=== PATIENT | male | born 1955 | race Caucasian/White ===

== ENCOUNTER 2016-10-01 07:59 | Inpatient (IN) | payer BC ==
[~2016-10-01] VITALS: Ht 182.9 cm; Wt 104.7 kg
[~2016-10-01 07:59] MED LIST: TAMS5CAP PO; XARE10TA PO
[2016-10-07] MEDS ORDERED: INSULIN HUMAN REGULAR 1,000 UNITS/10 ML VIAL SQ PRN (07:30)
[2016-10-07] MEDS ORDERED: LACTATED RINGER'S 1000 ML IV SCH (07:30)
[2016-10-07] MEDS ORDERED: SODIUM CHLORID 0.9% 500 ML IV SCH (07:30)
[2016-10-07] MEDS ORDERED: METOPROLOL TARTRATE 25 MG TAB PO PRN (07:30)
[2016-10-07 07:35] VITALS: BP 141/93; PULSE 57; RESP 16; TEMP 97.1; O2SAT 98
[2016-10-07] MEDS ORDERED: VANCOMYCIN HCL 1000 MG VIAL ONE (07:49)
[2016-10-07] MEDS ORDERED: SODIUM CHLOR 0.9% 250 ML INJ 250 ML ONE ×2 (07:49→09:34)
[2016-10-07] MEDS ORDERED: HEPARIN SODIUM - SQ 10,000 UNITS/ML VIAL ONE ×2 (08:30→09:34)
[2016-10-07] MEDS ORDERED: ceFAZolin 2 GM PREMIX 50 ML ONE ×2 (08:30→09:33)
[2016-10-07] MEDS ORDERED: BUPIVACAINE LIPOSO PF 1.3% INJ 20 ML in SODIUM CHLORIDE 0.9% INJ 40 ML PERIART SCH (09:15)
[2016-10-07] MEDS ORDERED: TRANEXAMIC ACID INJ 1,050 MG in SODIUM CHLORIDE 0.9% INJ 100 ML IV SCH (09:15)
[2016-10-07] MEDS ORDERED: GENTAMICIN SULFATE 80 MG/2 ML VIAL ONE ×2 (09:34→09:52)
[2016-10-07] MEDS ORDERED: FAMOTIDINE 20 MG/2 ML VIAL ONE (09:47)
[2016-10-07] MEDS ORDERED: MIDAZOLAM HCL 2 MG/2 ML VIAL ONE ×2 (09:47→13:29)
[2016-10-07] MEDS ORDERED: HYDROmorphone HCL PF 2 MG/ML VIAL ONE (09:53)
[2016-10-07] MEDS: GELFOAM SIZE 100 ONE ×2 (09:53→11:06)
[2016-10-07] MEDS ORDERED: ACETAMINOPHEN 1000 MG/100 ML VIAL IV ONE (09:53)
[2016-10-07] MEDS: THROMBIN (TOPICAL) 5,000 UNIT VIAL ONE ×2 (09:54→11:06)
[2016-10-07] MEDS ORDERED: WALKER WHEELS/F1 MIS (10:11)
--- NOTE | 2016-10-07 10:14 | HHI.DCPOC ---
Discharge Care Plan Diagnosis: (1) History of total left hip arthroplasty (2) Mechanical complic of internal orthopedic device, implant or graft (3) Left hip pain Your Health Problems Are: Incision/Drains Goals to Promote Your Health * To prevent worsening of your condition and complications * To maintain your health at the optimal level Directions to Meet Your Goals Take your medications as prescribed Follow your dietary instruction Follow activity as directed Keep your appointments as scheduled Take your immunizations and boosters as scheduled If your symptoms worsen call your PCP, if no PCP go to Urgent Care Center or Emergency Room Smoking is Dangerous to Your Health. Avoid second hand smoke Call the 24-hour hour crisis hotline for domestic abuse at Hannah Lezama Oct 07, 2016 10:14
--- NOTE | 2016-10-07 10:14 | HHI.DS ---
Discharge Summary Admission Date Oct 07, 2016 at 07:01 Discharge Date: Oct 10, 2016 Admitting Diagnosis see below Diagnosis: (1) History of total left hip arthroplasty Diagnosis: Principal (2) Left hip pain Diagnosis: Principal (3) Mechanical complic of internal orthopedic device, implant or graft Diagnosis: Principal Procedures Revisional left total hip arthroplasty Brief History This is a 60 year old male patient with a previous left total hip arthroplasty performed in 2016. He did well for 2-3 months then began having increased pain. Multiple studies were performed including CT scan, nuclear bone scan, multiple labs and xrays. After extensive evaluation he was found to have a loose prosthesis. Because of his pain and diminished function revisional surgery was recommended. Both he and his girlfriend elected to move forward. Hospital Course Surgical treatment was performed on the day of admission without complication. He recovered well in PACU and was transferred to the orthopaedic floor. Pain was controlled with IV and oral medications. DVT prophylaxis was initiated pod# 1. He struggled with urination so he was begun on flomax. He was compliant with physical therapy and all precautions. After 3 days he was found to be stable and discharged to a custodial facility with instruction to continue his therapy and to pursue a high fiber diet. Pt Condition on Discharge: Stable Discharge Disposition: Discharge to SNF Discharge Instructions Diet Instructions: High Fiber Diet Activities You Can Perform: Weight Bearing as Donnell Activities to Avoid: Strenuous Activity Additional Activity Instruc.: MARY precautions New Medications: Walker with Front Wheels (Walker with Front Wheels) 1 Mis Mis 1 EA .ROUTE DIRECTED #1 Ref 0 EA Continued Medications: Tamsulosin (Flomax) 0.4 Mg Cap 0.4 MG PO DAILY ret #90 Ref 3 CAP Hannah Lezama Oct 07, 2016 10:14
[2016-10-07] MEDS ORDERED: LACTATED RINGER'S 1000 ML INJ 2,000 ML IV ONE (10:27)
[2016-10-07] MEDS ORDERED: NEOSTIGMINE 3 MG/3 ML SYR IV ONE (10:27)
[2016-10-07] MEDS ORDERED: SODIUM CHLORID 0.9% 500 ML INJ 500 ML IV ONE (10:27)
[2016-10-07] MEDS ORDERED: ONDANSETRON HCL 4 MG/2 ML VIAL IV PUSH ONE (10:27)
[2016-10-07] MEDS ORDERED: PROPOFOL 200 MG/20 ML AMP IV ONE (10:27)
[2016-10-07] MEDS ORDERED: ePHEDrine/NS 50 MG/5 ML SYR IV ONE (10:27)
--- NOTE | 2016-10-07 10:30 | MH ---
cc: DEVON NAQVI M.D. DATE OF ADMISSION: 10/07/2016 ADMITTING DIAGNOSIS: Malfunctioning left total hip replacement arthroplasty HISTORY OF PRESENT ILLNESS: This is a 60 year-old male with significant left hip pain. The patient came to primary anterior left hip replacement arthroplasty approximately 10 to 11 months ago. The patient initially did well and then began developing increasing left hip pain. Investigative study shows consistent failure of fixation of the left femoral component. This patient now presents for revision left hip replacement arthroplasty. PAST MEDICAL HISTORY: See attached notes. SOCIAL HISTORY, FAMILY HISTORY, AND REVIEW OF SYSTEMS: See attached notes. PHYSICAL EXAMINATION: GENERAL: The patient is a 60 year-old male in moderate to severe distress with the left hip. HEENT: Normocephalic, atraumatic. Pupils equal, round, reactive to light and accommodation. Extraocular motions intact. NECK: Supple. CHEST: Clear. HEART: Regular rate and rhythm. ABDOMEN: Soft, nontender, normoactive bowel sounds. MUSCULOSKELETAL EXAMINATION: Left hip, pain with range of motion, well-healed anterior incision. Pain especially with internal and external rotation, minimal shortening of the left hip compared to the right. Neurologic and vascular examination is within normal limits. IMPRESSION: Malfunctioning left total hip replacement arthroplasty. PLAN: Revision left hip replacement arthroplasty. CONSENT: There are risks with surgery including infection, bleeding, loss of motion, continued pain, need for further surgery, neurologic or vascular injury, etc. The patient understands these issues and wishes to press on with surgery as outlined above. Devon Naqvi MD [facility] [place]/JOSE /10:51 PM /10:28 AM
[2016-10-07] MEDS ORDERED: ONDANSETRON HCL 4 MG/2 ML VIAL IVP PRN (12:45)
[2016-10-07] MEDS ORDERED: NALOXONE HCL 0.4 MG/ML AMP IV PRN (12:45)
[2016-10-07] MEDS ORDERED: ALUMINUM/MAGNESIUM/SIMETH 30 ML CUP PO PRN (12:45)
[2016-10-07] MEDS ORDERED: SODIUM CHLORIDE 0.9% FLUSH 5 ML FLUSH IVF PRN (12:45)
[2016-10-07] MEDS ORDERED: TEMAZEPAM 15 MG CAP PO PRN (12:45)
[2016-10-07] MEDS ORDERED: MORPHINE SULFATE 8 MG/ML INJ IM PRN (12:45)
[2016-10-07] MEDS ORDERED: BISACODYL 10 MG SUPP PR PRN (12:45)
--- NOTE | 2016-10-07 12:54 | PD.OP ---
cc: Jacobo Pereira MD Operative Report Date of Surgery: Oct 07, 2016 Preoperative Diagnosis: Malfunctioning left total hip replacement arthroplasty. Loosened left femoral stem Postoperative Diagnosis: Same Procedure: Revision left total hip replacement arthroplasty, revision femoral stem Anesthesia: Gen. Surgeon: Jacobo Pereira Dean Of Women(s): NAYELI Reynolds Operation and Findings: EBL: 400 cc INDICATION: Is patient is a 60-year-old male who approximately year ago came to an anterior left total hip replacement. He's had pain started approximately 3 months after surgery. His workup is consistent with aseptic loosening of the left femoral stem. He's recently had a right total hip replacement performed posteriorly using a [place] stem and has had a very good clinical response. He presents now for revision left hip replacement arthroplasty. NOTE: Jacinda Reynolds PA-C was present for the entire surgical procedure as my asset protection assistant. In my medical opinion her skill and care was necessary for the proper management of this patient. COMPONENTS: COMPANY: [employer] CUP: [place], 58 mm, 100 series STEM: Size 7, high offset, hydroxyapatite-coated, [place] pressfit HEAD: 36 mm, + 1.5 12/14 taper ALTRX: 36, neutral PROCEDURE: This patient was brought to the operating room and anesthetized in the supine position and positioned on the routine table in the clean air suite. The patient was then rolled to a left side up lateral position and held with a Biomet hip positioner. The hip and leg was scrubbed with alcohol followed by Hibiclens followed by chloro prep and draped sterilely. A timeout was done and antibiotics were given within a routine time window. A 4 inch incision was made starting along the posterior one third of the greater trochanter. The iliotibial band was opened in line with the incision. The Charnley retractors were positioned. The posterior capsule and external rotators were taken down together in a sleeve. An extended posterior approach was utilized. A capsulotomy was performed. The hip was inspected. The cup was in very satisfactory position. A subtotal capsulectomy was performed allowing exposure to the proximal femur. The femoral stem was loose. This appeared to be an unstable fibrous ingrowth type result Hip was dislocated posteriorly. The head was removed. Excessive bone the top of the greater trochanter was removed. Flexible curved and straight osteotomes were utilized allowing cutting through the fibrous interface. I removing device was attached and the stem was removed retrograde. There did not appear to be any bone ingrowth. There was a pedestal distally. This was drilled through with a regular size revision style drill. We then used a tapered awl of the reamers to ream distally to approximately 12 mm. We then converted to a [place] type revision stem. We broached proximally to a #7 after reaming to a #7. A size 6 stem was too deep to reestablished length. A trial reduction showed the +1.5 neck length the best. The final stem was inserted. There was an approximately 10-15 of anteversion. Trial reduction showed excellent stability. At 90 flexion it was stable to 45 of internal rotation. The final 36, +1.5, ceramic head was impacted. Reduction was as previously noted. Stability was excellent. Stem position was very satisfactory. The posterior capsule and external rotators were repaired through bone with interrupted #2 Tycron sutures. The piriformis muscle was repaired with the same. The iliotibial band with interrupted #1 Vicryl sutures. Subcutaneous tissue was approximated with 2-0 Vicryl suture and skin with running intradermal 3-0 Vicryl followed by Steri-Strips and benzoin. A sterile dressing was applied.. The sponge count needle counts and instrument counts were all correct. The patient was awakened and taken to the recovery room in satisfactory condition FINDINGS: There was evidence of a fibrous ingrowth stem which was not stable. Some small motion was seen with stressing stem. The final solution was very satisfactory using a hydroxy apatite coated tapered [place] stem. No complication was noted. The sciatic nerve was palpated deep to the exposure and retractors at all times. Jacobo Pereira MD Oct 07, 2016 12:54
[2016-10-07] MEDS ORDERED: HYDR-3366 PO (12:56)
[2016-10-07] MEDS ORDERED: XARE10TA PO (12:56)
[2016-10-07] MEDS ORDERED: fentaNYL CITRATE 250 MCG/5 ML AMP ONE (13:29)
[2016-10-07] MEDS ORDERED: DO NOT ADM ANY ANTICOAGULANT DRUGS XX PRN (13:30)
[2016-10-07] MEDS ORDERED: Post-op Orders (for Pharmacy) MISC XX ONE (13:30)
--- NOTE | 2016-10-07 13:51 | RADRPT ---
EXAM DATE/TIME: 10/07/2016 13:23 [facility] COMPARISON: HIP LEFT AP ONLY WO AP PELVIS, June 26, 2016, 7:47. INDICATIONS : Post-op revision total left hip arthroplasty. MEDICAL HISTORY : None. SURGICAL HISTORY : Total left hip arthroplasty. ENCOUNTER: Initial ACUITY: 1 day PAIN SCORE: Non-responsive. LOCATION: Left hip. FINDINGS: Patient is status post placement of a left hip prosthesis. There is good position and alignment of th e prosthesis and bony structures. The bony structures are grossly intact. Postsurgical changes are pr esent. CONCLUSION: Good position and alignment on this postoperative examination. Jason Diaz MD on October 07, 2016 at 13:49 Board Certified Radiologist. This report was verified electronically.
[2016-10-07] MEDS: PCA - TOTAL MG MORPHINE DELIVERED PER SHIFT SCH ×2 (14:00→22:00)
[2016-10-07] MEDS: LACTATED RINGER'S 1000 ML INJ 1,000 ML IV SCH ×2 (14:45→22:16)
[2016-10-07] MEDS ORDERED: *morphine SULFATE 8 MG/ML PERIprocedure ONLY ONE (14:46)
[2016-10-07] MEDS: MORPHINE SULFATE 30 MG/30 ML PCA IV SCH (15:06)
[2016-10-07 15:56] VITALS: BP 145/83; PULSE 65; RESP 17; TEMP 95.9; O2SAT 98
[2016-10-07] MEDS: ACETAMINOPHEN/HYDROcodone 325 MG/10 MG TAB PO PRN (18:33)
[2016-10-07 19:00] VITALS: BP 142/83; PULSE 61; RESP 17; TEMP 96.1; O2SAT 98
[2016-10-07 22:00] VITALS: O2SAT 97
[2016-10-07] MEDS: SODIUM CHLORIDE 0.9% FLUSH 5 ML FLUSH IVF SCH (22:16)
[2016-10-07 23:59] VITALS: BP 134/67; PULSE 61; RESP 16; TEMP 97.7; O2SAT 97
[2016-10-08 05:45] VITALS: BP 128/77; PULSE 66; RESP 17; TEMP 96.4; O2SAT 94
[2016-10-08] MEDS: PCA - TOTAL MG MORPHINE DELIVERED PER SHIFT SCH ×2 (06:00→13:57)
[2016-10-08] MEDS: MORPHINE SULFATE 30 MG/30 ML PCA IV SCH (07:19)
[2016-10-08 08:00] VITALS: BP 112/73; PULSE 78; RESP 18; TEMP 98.2; O2SAT 97
[2016-10-08 08:02] LABS: REVIEW FLAG FINAL
[2016-10-08] MEDS: SODIUM CHLORIDE 0.9% FLUSH 5 ML FLUSH IVF SCH ×2 (08:54→21:08)
[2016-10-08] MEDS ORDERED: TAMSULOSIN HCL 0.4 MG CAP PO SCH (09:00)
[2016-10-08 12:00] VITALS: BP 115/69; PULSE 82; RESP 18; TEMP 98.3; O2SAT 95
[2016-10-08] MEDS: RIVAROXABAN 10 MG TAB PO SCH (12:18)
[2016-10-08] MEDS: ACETAMINOPHEN/HYDROcodone 325 MG/10 MG TAB PO PRN ×3 (12:28→21:44)
--- NOTE | 2016-10-08 12:45 | PD.ORT.PN ---
Subjective Subjective Remarks Moderate left hip and thigh pain with occasional spasms. No new radiating leg pain. No CP or SOB. No fever. Coppola cath just removed. Drinking lots of liquids. Questions about surgery. Objective Vitals Vital Signs Date Time Temp Pulse Resp B/P Pulse Ox O2 Delivery O2 Flow Rate FiO2 10/08/16 08:00 98.2 78 18 112/73 97 10/08/16 05:45 96.4 66 17 128/77 94 10/07/16 23:59 97.7 61 16 134/67 97 10/07/16 22:00 97 Nasal Cannula 3.00 10/07/16 19:33 Room Air 10/07/16 19:00 96.1 61 17 142/83 98 10/07/16 15:56 95.9 65 17 145/83 98 10/07/16 15:06 14 10/07/16 14:45 97.7 67 16 145/93 99 Nasal Cannula 3 10/07/16 14:30 62 16 147/92 99 Nasal Cannula 3 10/07/16 14:15 60 15 155/91 99 Nasal Cannula 3 10/07/16 14:00 57 15 147/88 99 Nasal Cannula 3 10/07/16 13:45 63 15 151/89 99 Nasal Cannula 3 10/07/16 13:30 64 14 142/90 99 Nasal Cannula 3 10/07/16 13:21 148/91 10/07/16 13:21 97.5 76 14 18/91 99 Nasal Cannula 3 I/O 10/07/16 10/07/16 10/07/16 10/08/16 10/08/16 10/08/16 07:00 15:00 23:00 07:00 15:00 23:00 Intake Total 2150 ml 1147 ml Output Total 1350 ml 750 ml Balance 800 ml 397 ml Intake Oral 480 ml IV Total 150 ml 667 ml Other 2000 ml Output Urine Total 750 ml 750 ml Estimated Blood Loss 600 ml # Bowel Movements 0 Result Diagram: 10/08/16 0657 Procedures Revisional left total hip arthroplasty Objective Remarks Sitting up in chair, NAD VSS LLE Dressing c/d/i, some swelling, no erythema, moderate warmth thigh and calf supple, neg homans +motor at, +sens, +nvi Assessment & Plan Ortho Post Op Day #: 1 Problem List: (1) History of total left hip arthroplasty (2) Left hip pain (3) Mechanical complic of internal orthopedic device, implant or graft Assessment and Plan pod#1 s/p Rev L MARY, posterior approach D/C SCRAPER MEAT this afternoon - change to po pain meds. PT - WBAT LLE. Posterior MARY precautions. Xarelto 10mg qd. Repeat hg/hct tomorrow am. Hold dressing changes unless saturated. D/C planning, SNF thursday. Prefers [facility] but I am not sure if he qualifies. Strongly against going to [facility] due to poor experience. Hannah Lezama Oct 08, 2016 12:45
[2016-10-08] MEDS: LACTATED RINGER'S 1000 ML INJ 1,000 ML IV SCH (13:42)
[2016-10-08 16:00] VITALS: BP 119/75; PULSE 81; RESP 18; TEMP 96.6; O2SAT 95
[2016-10-08] MEDS ORDERED: TAMSULOSIN HCL 0.4 MG CAP PO ONE (18:45)
[2016-10-08 20:00] VITALS: BP 133/71; PULSE 86; RESP 19; TEMP 98.6; O2SAT 93
[2016-10-08] MEDS: DOCUSATE SODIUM 100 MG CAP PO SCH (21:08)
[2016-10-09] VITALS: BP 110/75; PULSE 87; RESP 18; TEMP 99; O2SAT 95
[2016-10-09] MEDS: LACTATED RINGER'S 1000 ML INJ 1,000 ML IV SCH ×3 (01:29→20:11)
[2016-10-09] MEDS: ACETAMINOPHEN/HYDROcodone 325 MG/10 MG TAB PO PRN ×3 (04:35→15:32)
[2016-10-09] MEDS: MAGNESIUM HYDROXIDE SUSP 30 ML CUP PO PRN ×3 (04:35→19:57)
[2016-10-09 07:24] LABS: HEMATOCRIT 31.6 % (39.0-51.0); REVIEW FLAG FINAL
--- NOTE | 2016-10-09 07:45 | HHI.DCPOC ---
Discharge Care Plan Diagnosis: (1) History of total left hip arthroplasty (2) Mechanical complic of internal orthopedic device, implant or graft (3) Left hip pain Your Health Problems Are: Incision/Drains Goals to Promote Your Health * To prevent worsening of your condition and complications * To maintain your health at the optimal level Directions to Meet Your Goals Take your medications as prescribed Follow your dietary instruction Follow activity as directed Keep your appointments as scheduled Take your immunizations and boosters as scheduled If your symptoms worsen call your PCP, if no PCP go to Urgent Care Center or Emergency Room Smoking is Dangerous to Your Health. Avoid second hand smoke Call the 24-hour hour crisis hotline for domestic abuse at Hannah Lezama Oct 09, 2016 07:45
--- NOTE | 2016-10-09 07:56 | PD.ORT.PN ---
Subjective Subjective Remarks Moderate left hip and thigh pain still. Slight improvement since yesterday. Coppola removed yesterday and urinating well. Apparently he is on Flomax BID now. No new radiating left leg pain. No CP or SOB. No fever. Drinking lots of liquids. Questions about long term. He prefers [facility] if it is an option. Objective Vitals Vital Signs Date Time Temp Pulse Resp B/P Pulse Ox O2 Delivery O2 Flow Rate FiO2 10/09/16 07:38 Room Air 10/09/16 00:00 99.0 87 18 110/75 95 10/08/16 20:00 98.6 86 19 133/71 93 10/08/16 18:27 Nasal Cannula 3.00 10/08/16 16:00 96.6 81 18 119/75 95 10/08/16 13:59 Room Air 10/08/16 13:57 18 10/08/16 12:00 98.3 82 18 115/69 95 10/08/16 08:00 98.2 78 18 112/73 97 I/O 10/08/16 10/08/16 10/08/16 10/09/16 10/09/16 10/09/16 07:00 15:00 23:00 07:00 15:00 23:00 Intake Total 1147 ml 1823 ml 480 ml 360 ml Output Total 750 ml 900 ml 600 ml 600 ml Balance 397 ml 923 ml -120 ml -240 ml Intake Oral 480 ml 1250 ml 480 ml 360 ml IV Total 667 ml 573 ml Output Urine Total 750 ml 900 ml 600 ml 600 ml # Bowel Movements 0 0 1 0 Result Diagram: 10/09/16 0651 Procedures Revisional left total hip arthroplasty Objective Remarks Sitting up in bed, NAD VSS LLE Dressing c/d/i, some swelling, no erythema, moderate warmth thigh and calf supple, neg homans +motor at, +sens, +nvi Assessment & Plan Ortho Post Op Day #: 2 Problem List: (1) History of total left hip arthroplasty (2) Left hip pain (3) Mechanical complic of internal orthopedic device, implant or graft Assessment and Plan pod#2 s/p Rev L MARY, posterior approach Continue w PO gallo meds. Flomax bid for urination. PT - WBAT LLE. Posterior MARY precautions. Xarelto 10mg qd. Hold dressing changes unless saturated. D/C planning, SNF thursday. Prefers [facility] but I am not sure if he qualifies. I want case management to discuss options w him today. Hannah Lezama Oct 09, 2016 07:56
[2016-10-09 08:00] VITALS: BP 123/65; PULSE 92; RESP 18; TEMP 98.3; O2SAT 94
[2016-10-09] MEDS: DOCUSATE SODIUM 100 MG CAP PO SCH ×2 (09:34→19:57)
[2016-10-09] MEDS: SODIUM CHLORIDE 0.9% FLUSH 5 ML FLUSH IVF SCH ×2 (09:34→19:58)
[2016-10-09] MEDS: TAMSULOSIN HCL 0.4 MG CAP PO SCH ×2 (09:34→19:57)
[2016-10-09 09:52] VITALS: O2SAT 94
[2016-10-09] MEDS: RIVAROXABAN 10 MG TAB PO SCH (11:46)
[2016-10-09 12:00] VITALS: BP 109/76; PULSE 91; RESP 18; TEMP 97.1; O2SAT 96
[2016-10-09 15:42] VITALS: BP 108/63; PULSE 92; RESP 18; TEMP 98.8; O2SAT 96
[2016-10-09 20:00] VITALS: BP 99/66; PULSE 73; RESP 18; TEMP 96.6; O2SAT 96
[2016-10-10] VITALS: BP 117/68; PULSE 86; RESP 18; TEMP 97.7; O2SAT 96
[2016-10-10] MEDS: ACETAMINOPHEN/HYDROcodone 325 MG/10 MG TAB PO PRN ×4 (02:00→17:09)
--- NOTE | 2016-10-10 07:49 | PD.ORT.PN ---
Subjective Subjective Remarks Left hip and groin pain slight improved. Still has thigh pain but no worse. Had BM yesterday. COntinues to urinate well. Looking at returning to [facility] as they have a zero gravity machine and [facility] Objective Vitals Vital Signs Date Time Temp Pulse Resp B/P Pulse Ox O2 Delivery O2 Flow Rate FiO2 10/10/16 00:00 97.7 86 18 117/68 96 10/09/16 20:00 96.6 73 18 99/66 96 10/09/16 15:42 98.8 92 18 108/63 96 10/09/16 12:00 97.1 91 18 109/76 96 10/09/16 09:52 94 21 10/09/16 08:00 98.3 92 18 123/65 94 I/O 10/09/16 10/09/16 10/09/16 10/10/16 10/10/16 10/10/16 07:00 15:00 23:00 07:00 15:00 23:00 Intake Total 360 ml 1200 ml 480 ml 480 ml Output Total 600 ml 550 ml 900 ml Balance -240 ml 1200 ml -70 ml -420 ml Intake Oral 360 ml 1200 ml 480 ml 480 ml Output Urine Total 600 ml 550 ml 900 ml # Voids 3 # Bowel Movements 0 0 1 2 Result Diagram: 10/09/16 0651 Procedures Revisional left total hip arthroplasty Objective Remarks Sitting up in bed, NAD VSS LLE Dressing c/d/i, some swelling, no erythema, moderate warmth thigh and calf supple, neg homans +motor at, +sens, +nvi Assessment & Plan Ortho Post Op Day #: 3 Problem List: (1) History of total left hip arthroplasty (2) Left hip pain (3) Mechanical complic of internal orthopedic device, implant or graft Assessment and Plan pod#3 s/p Rev L MARY, posterior approach Ok to d/c to SNF today - going to [facility] bc not accepted at [place]. Continue w PO gallo meds. Flomax bid for urination. PT - WBAT LLE. Posterior MARY precautions. Xarelto 10mg qd. Hold dressing changes unless saturated. F/U in 2 weeks as scheduled. Hannah Lezama Oct 10, 2016 07:49
[2016-10-10 08:00] VITALS: BP 120/76; PULSE 82; RESP 18; TEMP 98.1; O2SAT 98
[2016-10-10] MEDS: DOCUSATE SODIUM 100 MG CAP PO SCH (08:38)
[2016-10-10] MEDS: TAMSULOSIN HCL 0.4 MG CAP PO SCH (08:41)
[2016-10-10] MEDS: SODIUM CHLORIDE 0.9% FLUSH 5 ML FLUSH IVF SCH (09:00)
[2016-10-10 12:00] VITALS: BP 128/65; PULSE 81; RESP 18; TEMP 98.1; O2SAT 95
[2016-10-10] MEDS: RIVAROXABAN 10 MG TAB PO SCH (12:37)
[2016-10-10 16:00] VITALS: BP 111/64; PULSE 70; RESP 18; TEMP 96.6; O2SAT 98
== END 2016-10-10 18:34 | DRG 468 ==
LOC: HSDI 10-07 07:01 → N06B 10-07 15:14
PROVIDERS: ADMIT Orthopaedic Surgery Orthopaedic Surgery of the Spine; ATTEND Orthopaedic Surgery Orthopaedic Surgery of the Spine
PROC: 0SRS03Z Replacement of Left Hip Joint, Femoral Surface with Ceramic Synthetic Substitute, Open Approach (ICD-10-PCS; 2016-10-07)
PROC: 0SPS0JZ Removal of Synthetic Substitute from Left Hip Joint, Femoral Surface, Open Approach (ICD-10-PCS; principal; 2016-10-07 10:00)
DX: T84.031A Mechanical loosening of internal left hip prosthetic joint, initial encounter (principal); Z96.641 Presence of right artificial hip joint; Y79.2 Prosthetic and other implants, materials and accessory orthopedic devices associated with adverse incidents
CPT/HCPCS: 73501; 85014; 85018; 86850; 86900; 86901; 86920; 94150; C1776; C9290; J0131; J0690; J1170; J1580; J1644; J2250; J2270; J2405; J2710; J3010; J3370; J7040; J7050; J7120

== ENCOUNTER 2016-10-20 07:16 | Emergency (ER) | payer BC ==
[~2016-10-20] VITALS: Ht 180.3 cm; Wt 100.0 kg
[~2016-10-20 07:16] MED LIST changes: +HYDR-3366 PO; +WALKER WHEELS/F1 MIS
[2016-10-20 07:18] VITALS: BP 141/80; PULSE 92; RESP 20; TEMP 97.7; O2SAT 97
--- NOTE | 2016-10-20 08:05 | PD ---
HPI Chief Complaint: Hip Injury Time Seen by Provider: 07:34 Travel History International Travel<30 days: No Contact w/Intl Traveler<30days: No Traveled to known affect area: No History of Present Illness HPI 60-year-old man, otherwise fairly healthy, presents emergent department complaining of lower abdominal discomfort. He recently had a revision of his left total hip arthroplasty done with Jacobo Shea on October 07. He had been recovering well from that. He was having pain in the femoral component of his previous surgery apparently was having trouble. He's had a history of prostatitis 2 times in the past. He has had urosepsis with urinary retention in the past. He states he is doing generally well. He says a lot of pain in the left hip since the surgery. He is not on any opiates now. There is some concern about some swelling in his leg at rehabilitation. Over the past week or so he's felt like he's had more swelling in his posterior incision. No fevers chills or other symptoms. Starting last night he started to get lower abdominal suprapubic discomfort, as well as pain when he tries to go to the bathroom to defecate, but no dysuria. He states he feels similar to when he has had prostatitis before. He follows with Dr. Arango with urology. He otherwise has been feeling generally well and healthy. History Past Medical History Narrative Medical Prostatitis, urinary retention, urosepsis Recent left hip surgery Denies diabetes heart or lung problems. Social History Alcohol Use: No Tobacco Use: No (1 MONTH AGO) Allergies-Medications (Allergen,Severity, Reaction): Coded Allergies: *MDRO Multi-Drug Resistant Organism (Verified Adverse Reaction, Unknown, ) MRSA, per MD documentation MRSA PCR screen NEGATIVE - 11/28/15 & 08/07/16 CLEARED PER INFECTION CONTROL PROTOCOL Reported Meds & Prescriptions Reported Meds & Active Scripts Active Walker with Front Wheels (Device) 1 Mis Mis 1 Ea .ROUTE DIRECTED Flomax (Tamsulosin HCl) 0.4 Mg Cap 0.4 Mg PO DAILY Review of Systems Except as stated in HPI: all other systems reviewed are Neg Physical Exam Narrative GENERAL: Well-appearing 60-year-old man, no acute distress. SKIN: Warm and dry. CARDIOVASCULAR: Regular rate and rhythm. No murmur appreciated. RESPIRATORY: No accessory muscle use. Clear to auscultation. Breath sounds equal bilaterally. GASTROINTESTINAL: Abdomen soft, non-tender, nondistended. Hepatic and splenic margins not palpable. MUSCULOSKELETAL: No obvious deformities. I don't see any obvious asymmetry or swelling of the left leg. There is no calf tenderness. Is no calf edema. The recent surgical incision on the posterior aspect of the hip is intact. There are Steri-Strips in some areas especially laterally. There is no evidence of erythema redness tenderness or drainage. There may be a little bit of fullness to the area of the incision compared to the opposite side, but no significant swelling. RECTAL: Moderate prostatic tenderness but no obvious bogginess or edema. NEUROLOGICAL: Awake and alert. No obvious cranial nerve deficits. Motor grossly within normal limits. Normal speech. PSYCHIATRIC: Appropriate mood and affect; insight and judgment normal. Data Data Last Documented VS Vital Signs Date Time Temp Pulse Resp B/P Pulse Ox O2 Delivery O2 Flow Rate FiO2 10/20/16 07:18 97.7 92 20 141/80 97 Room Air Orders Complete Blood Count With Diff (10/20/16 07:42) Basic Metabolic Panel (Bmp) (10/20/16 07:42) Urinalysis - C+S If Indicated (10/20/16 07:42) Iv Access Insert/Monitor (10/20/16 07:42) Ed Poc Ultrasound (10/20/16 ) Urine Culture (10/20/16 08:48) Labs Laboratory Tests Test 10/20/16 08:00 White Blood Count 10.5 TH/MM3 Red Blood Count 3.94 MIL/MM3 Hemoglobin 10.5 GM/DL Hematocrit 31.5 % Mean Corpuscular Volume 80.0 FL Mean Corpuscular Hemoglobin 26.6 PG Mean Corpuscular Hemoglobin 33.2 % Concent Red Cell Distribution Width 15.4 % Platelet Count 230 TH/MM3 Mean Platelet Volume 7.3 FL Neutrophils (%) (Auto) 79.7 % Lymphocytes (%) (Auto) 9.8 % Monocytes (%) (Auto) 6.6 % Eosinophils (%) (Auto) 2.5 % Basophils (%) (Auto) 1.4 % Neutrophils # (Auto) 8.4 TH/MM3 Lymphocytes # (Auto) 1.0 TH/MM3 Monocytes # (Auto) 0.7 TH/MM3 Eosinophils # (Auto) 0.3 TH/MM3 Basophils # (Auto) 0.1 TH/MM3 CBC Comment DIFF FINAL Differential Comment Urine Color YELLOW Urine Turbidity CLEAR Urine pH 5.0 Urine Specific [place] 1.021 Urine Protein NEG mg/dL Urine Glucose (UA) NEG mg/dL Urine Ketones NEG mg/dL Urine Occult Blood NEG Urine Nitrite NEG Urine Bilirubin NEG Urine Urobilinogen LESS THAN 2.0 MG/DL Urine Leukocyte Esterase NEG Urine RBC LESS THAN 1 /hpf Urine WBC 2 /hpf Urine Squamous Epithelial <1 /hpf Cells Urine Mucus FEW /lpf Microscopic Urinalysis Comment CULT NOT INDICATED Sodium Level 143 MEQ/L Potassium Level 4.2 MEQ/L Chloride Level 108 MEQ/L Carbon Dioxide Level 29.8 MEQ/L Anion Gap 5 MEQ/L Blood Urea Nitrogen 19 MG/DL Creatinine 0.74 MG/DL Estimat Glomerular Filtration 108 ML/MIN Rate Random Glucose 114 MG/DL Calcium Level 8.6 MG/DL [facility] Medical Decision Making Medical Screen Exam Complete: Yes Emergency Medical Condition: Yes Differential Diagnosis Prostatitis, UTI, constipation, colitis, infection, hip infection or abscess, other Narrative Course Medical decision making INITIAL: This is a 60-year-old man who presents emergency Department suprapubic abdominal discomfort. Suspect UTI or prostatitis. This does not appear to be related to his recent left hip surgery. I don't see any evidence of DVT. On seeing evidence of wound infection. Deep pelvic abscess seems possible but unlikely given his lack of other infectious symptoms such as fevers chills night sweats or feeling ill. FINAL: 60-year-old male with lower abdominal discomfort. Looks well. Possible prostatitis, urine negative, culture pending. We'll see any evidence of other infection. At this point recommended follow-up with his orthopedic doctor, follow-up with urologist. Diagnosis Primary Impression: Abdominal pain Qualified Code: R10.30 - Lower abdominal pain Additional Instructions: Follow-up with orthopedic doctor in the next one to 2 days. Return to the emergency department for any worsening pain, any fevers, or any other new or worsening symptoms. Med/Other Pt SpecificInfo: No Change to Meds Disposition: 01 DISCHARGE HOME Condition: Stable Alexis Waite MD Oct 20, 2016 08:05
[2016-10-20 08:15] LABS: AUTOMATED NEUTROPHIL # 8.4 TH/MM3 (1.8-7.7); BASOPHIL # 0.1 TH/MM3 (0-0.2); BASOPHIL % 1.4 % (0.0-2.0); EOSINOPHIL # 0.3 TH/MM3 (0-0.4); EOSINOPHIL % 2.5 % (0.0-4.0); HEMATOCRIT 31.5 % (39.0-51.0); HEMO FLAGS DIFF FINAL; LYMPH % 9.8 % (9.0-44.0); MEAN CORPUSCULAR HEMOGLOBIN 26.6 PG (27.0-34.0); MEAN CORPUSCULAR HGB CONC 33.2 % (32.0-36.0); MONO % 6.6 % (0.0-8.0); NEUT % 79.7 % (16.0-70.0); PLATELET COUNT 230 TH/MM3 (150-450); RED BLOOD COUNT 3.94 MIL/MM3 (4.50-5.90); RED CELL DISTRIBUTION WIDTH 15.4 % (11.6-17.2); WHITE BLOOD COUNT 10.5 TH/MM3 (4.0-11.0)
[2016-10-20 08:19] LABS: BLOOD, URINE NEG (NEG); GLUCOSE,URINE NEG (NEG); KETONE, URINE NEG (NEG); MUCUS URINE FEW /lpf (OCC); NITRITE,URINE NEG (NEG); SQUAMOUS EPITHELIAL CELL URINE <1 /hpf (0-5); URINE COLOR YELLOW (YELLW/STRAW)
[2016-10-20 08:20] LABS: COMMENT (UR) CULT NOT INDICATED; CULTURE IF INDICATED CULT NOT INDICATED
[2016-10-20 08:28] LABS: BICARBONATE 29.8 MEQ/L (21.0-32.0); POTASSIUM 4.2 MEQ/L (3.5-5.1)
[2016-10-20] MEDS ORDERED: IOHEXOL 350 MG/ML 10 ML VIAL (for RAD DIAG) IV ONE (09:31)
--- NOTE | 2016-10-20 09:56 | RADRPT ---
EXAM DATE/TIME: 10/20/2016 09:17 [facility] COMPARISON: CT ABDOMEN & PELVIS W CONTRAST, August 22, 2014, 12:03. INDICATIONS: Lower abdomen pain today. IV CONTRAST: 90 cc Omnipaque 350 (iohexol) IV ORAL CONTRAST: No oral contrast ingested. RADIATION DOSE: 11.69 CTDIvol (mGy) MEDICAL HISTORY: Diverticulitis. SURGICAL HISTORY: Bilateral hip replacement ENCOUNTER: Initial ACUITY: 1 day PAIN SCALE: 7/10 LOCATION: Bilateral lower quadrant TECHNIQUE: Volumetric scanning of the abdomen and pelvis was performed. Using automated exposure control and ad justment of the mA and/or kV according to patient size, radiation dose was kept as low as reasonably achievable to obtain optimal diagnostic quality images. FINDINGS: Lung bases are clear. Liver is free of focal defects. The spleen, pancreas, and adrenals unremarkab le. Cysts are seen in both kidneys, larger on the right than the left. Cyst on the right measures 3.7 cm . There is no ascites or adenopathy. In the pelvis there is diverticula in the sigmoid colon with very mild diverticulitis seen best on se rhonda 2, image 67. There is no abscess. Patient is status post total hip arthroplasty that causes mild artifact in the pelvis. CONCLUSION: 1. Diverticulitis without abscess. This involves a short segment of the sigmoid colon. Hieu Bowers MD FACR on October 20, 2016 at 9:48 Board Certified Radiologist. This report was verified electronically.
[2016-10-20] MEDS ORDERED: HYDR-3533 PO (10:07)
[2016-10-20] MEDS ORDERED: CIPR-9 PO (10:07)
[2016-10-20] MEDS ORDERED: CYCL1TAB29 PO (10:07)
--- NOTE | 2016-10-20 10:07 | PD ---
Data Data Last Documented VS Vital Signs Date Time Temp Pulse Resp B/P Pulse Ox O2 Delivery O2 Flow Rate FiO2 10/20/16 07:18 97.7 92 20 141/80 97 Room Air Orders Complete Blood Count With Diff (10/20/16 07:42) Basic Metabolic Panel (Bmp) (10/20/16 07:42) Urinalysis - C+S If Indicated (10/20/16 07:42) Iv Access Insert/Monitor (10/20/16 07:42) Ed Poc Ultrasound (10/20/16 ) Urine Culture (10/20/16 08:48) Ct Abd/Pel W Iv Contrast(Rout) (10/20/16 ) Iohexol 350 Inj (Omnipaque 350 Inj) (10/20/16 09:31) Labs Laboratory Tests Test 10/20/16 08:00 White Blood Count 10.5 TH/MM3 Red Blood Count 3.94 MIL/MM3 Hemoglobin 10.5 GM/DL Hematocrit 31.5 % Mean Corpuscular Volume 80.0 FL Mean Corpuscular Hemoglobin 26.6 PG Mean Corpuscular Hemoglobin 33.2 % Concent Red Cell Distribution Width 15.4 % Platelet Count 230 TH/MM3 Mean Platelet Volume 7.3 FL Neutrophils (%) (Auto) 79.7 % Lymphocytes (%) (Auto) 9.8 % Monocytes (%) (Auto) 6.6 % Eosinophils (%) (Auto) 2.5 % Basophils (%) (Auto) 1.4 % Neutrophils # (Auto) 8.4 TH/MM3 Lymphocytes # (Auto) 1.0 TH/MM3 Monocytes # (Auto) 0.7 TH/MM3 Eosinophils # (Auto) 0.3 TH/MM3 Basophils # (Auto) 0.1 TH/MM3 CBC Comment DIFF FINAL Differential Comment Urine Color YELLOW Urine Turbidity CLEAR Urine pH 5.0 Urine Specific [place] 1.021 Urine Protein NEG mg/dL Urine Glucose (UA) NEG mg/dL Urine Ketones NEG mg/dL Urine Occult Blood NEG Urine Nitrite NEG Urine Bilirubin NEG Urine Urobilinogen LESS THAN 2.0 MG/DL Urine Leukocyte Esterase NEG Urine RBC LESS THAN 1 /hpf Urine WBC 2 /hpf Urine Squamous Epithelial <1 /hpf Cells Urine Mucus FEW /lpf Microscopic Urinalysis Comment CULT NOT INDICATED Sodium Level 143 MEQ/L Potassium Level 4.2 MEQ/L Chloride Level 108 MEQ/L Carbon Dioxide Level 29.8 MEQ/L Anion Gap 5 MEQ/L Blood Urea Nitrogen 19 MG/DL Creatinine 0.74 MG/DL Estimat Glomerular Filtration 108 ML/MIN Rate Random Glucose 114 MG/DL Calcium Level 8.6 MG/DL [facility] Supervised Visit with AZIZA: No Diagnosis Primary Impression: Abdominal pain Qualified Code: R10.30 - Lower abdominal pain Additional Impression: Diverticulitis Qualified Code: K57.32 - Diverticulitis of large intestine without perforation or abscess without bleeding Additional Instruction: Follow-up with your primary doctor in the next 3-5 days if you're not feeling completely well. Return emergency department for any worsening abdominal pain, fevers, or any other new or worsening symptoms. Med/Other Pt SpecificInfo: Prescription(s) given Scripts Hydrocodone-Acetaminophen (Lortab)5-325 Mg Tab1 Tab PO Q6H PRN (PAIN) #12 TAB Ref 0 Prov:Alexis Waite MD 10/20/16 Cyclobenzaprine (Flexeril)10 Mg Tab10 Mg PO TID 7 Days Prov:Alexis Waite MD 10/20/16 Ciprofloxacin (Cipro)500 Mg Uht480 Mg PO BID 7 Days Prov:Alexis Waite MD 10/20/16 Disposition: 01 DISCHARGE HOME Condition: Stable Alexis Waite MD Oct 20, 2016 10:07
== END 2016-10-20 10:22 | disposition home or self-care (01) ==
LOC: NEPC 07:16
DX: R10.30 Lower abdominal pain, unspecified (principal); K57.32 Diverticulitis of large intestine without perforation or abscess without bleeding; B96.89 Other specified bacterial agents as the cause of diseases classified elsewhere; M25.552 Pain in left hip; R22.42 Localized swelling, mass and lump, left lower limb; Z96.642 Presence of left artificial hip joint; Z87.438 Personal history of other diseases of male genital organs
CPT/HCPCS: 74177; 80048; 81001; 85025; 87077; 87086; 87186; 99284; Q9967

== ENCOUNTER 2017-05-08 16:25 | Emergency (ER) | payer BC ==
[~2017-05-08] VITALS: Ht 182.9 cm; Wt 105.0 kg
[~2017-05-08 16:25] MED LIST changes: +CIPR-9 PO; +CYCL1TAB29 PO; -HYDR-3366 PO; +HYDR-3533 PO; -XARE10TA PO
[2017-05-08 16:27] VITALS: BP 139/88; PULSE 80; RESP 16; TEMP 97.5; O2SAT 97
--- NOTE | 2017-05-08 18:11 | PD ---
HPI Chief Complaint: Abdominal Pain Time Seen by Provider: 17:51 Travel History International Travel<30 days: No Contact w/Intl Traveler<30days: No Traveled to known affect area: No History of Present Illness HPI 61-year-old male with history of diverticulitis, prostatitis, here for evaluation of lower abdominal pain. The patient reports that for the last 3-4 days he has been having lower abdominal pain that radiates to his lower back bilaterally. He is unable to describe the pain. Pain is constant, moderate, worse with movement and palpation. He denies fevers. No urinary symptoms. No history of abdominal surgeries. PFSH Past Medical History Arthritis: Yes Asthma: No Blood Disorders: No Anxiety: No Depression: No Heart Rhythm Problems: No Cancer: No Cardiovascular Problems: No High Cholesterol: Yes (NO MEDS) Chest Pain: No Congestive Heart Failure: No COPD: No Diabetes: No Diminished Hearing: No Diverticulitis: Yes Endocrine: No Gastrointestinal Disorders: No Genitourinary: No Hepatitis: No Hiatal Hernia: No Hypertension: No Immune Disorder: No Musculoskeletal: Yes (HIPS, ARTHRITIS) Neurologic: No Psychiatric: No Reproductive: No Respiratory: No Integumentary: Yes (PSORIASIS) Sleep Apnea: No Thyroid Disease: No Past Surgical History Abdominal Surgery: No AICD: No Cardiac Surgery: No Ear Surgery: No Endocrine Surgery: No Eye Surgery: Yes (LASIK) Genitourinary Surgery: No Gynecologic Surgery: No Joint Replacement: Yes (TOTAL LEFT HIP, TOTAL RIGHT) Neurologic Surgery: No Oral Surgery: No Pacemaker: No Thoracic Surgery: No Other Surgery: Yes (BLADDER ) Social History Alcohol Use: Yes Tobacco Use: No Substance Use: No Allergies-Medications (Allergen,Severity, Reaction): Coded Allergies: *MDRO Multi-Drug Resistant Organism (Verified Adverse Reaction, Unknown, ) MRSA, per MD documentation MRSA PCR screen NEGATIVE - 11/28/15 & 08/07/16 CLEARED PER INFECTION CONTROL PROTOCOL Reported Meds & Prescriptions Reported Meds & Active Scripts Active Flomax (Tamsulosin HCl) 0.4 Mg Cap 0.4 Mg PO DAILY Review of Systems Except as stated in HPI: all other systems reviewed are Neg Physical Exam Narrative GENERAL: Well-developed, well-nourished, sitting comfortably on stretcher, no apparent distress. SKIN: Focused skin assessment warm/dry. No rash. HEAD: Atraumatic. Normocephalic. EYES: Pupils equal and round. No scleral icterus. No injection or drainage. ENT: Mucous membranes pink and moist. NECK: Trachea midline. No JVD. CARDIOVASCULAR: Regular rate and rhythm. No murmur appreciated. RESPIRATORY: No accessory muscle use. Clear to auscultation. Breath sounds equal bilaterally. GASTROINTESTINAL: Abdomen soft, nondistended. Mild right lower quadrant, left lower quadrant, and suprapubic tenderness without peritoneal signs. Rest of abdomen is soft and nontender. Normal bowel sounds. MUSCULOSKELETAL: No obvious deformities. No clubbing. No cyanosis. No edema. No midline vertebral step-off or tenderness. No CVA tenderness. NEUROLOGICAL: Awake and alert. No obvious cranial nerve deficits. Motor grossly within normal limits. Normal speech. PSYCHIATRIC: Appropriate mood and affect; insight and judgment normal. Data Data Last Documented VS Vital Signs Date Time Temp Pulse Resp B/P Pulse Ox O2 Delivery O2 Flow Rate FiO2 05/08/17 18:49 56 16 138/80 97 Room Air 05/08/17 16:27 97.5 Orders Complete Blood Count With Diff (05/08/17 18:06) Comprehensive Metabolic Panel (05/08/17 18:06) Lipase (05/08/17 18:06) Prothrombin Time / Inr (Pt) (05/08/17 18:06) Act Partial Throm Time (Ptt) (05/08/17 18:06) Urinalysis - C+S If Indicated (05/08/17 18:06) Ct Abd/Pel W Iv Contrast(Rout) (05/08/17 18:06) Iv Access Insert/Monitor (05/08/17 18:06) Ecg Monitoring (05/08/17 18:06) Oximetry (05/08/17 18:06) Sodium Chloride 0.9% Flush (Ns Flush) (05/08/17 18:15) Ct Lumb Spine W/O Contrast (05/08/17 ) Iohexol 350 Inj (Omnipaque 350 Inj) (05/08/17 19:41) Ciprofloxacin (Cipro) (05/08/17 20:00) Metronidazole (Flagyl) (05/08/17 20:00) Labs Laboratory Tests Test 05/08/17 05/08/17 18:20 18:30 Urine Color YELLOW Urine Turbidity CLEAR Urine pH 5.0 Urine Specific [place] 1.023 Urine Protein NEG mg/dL Urine Glucose (UA) NEG mg/dL Urine Ketones NEG mg/dL Urine Occult Blood NEG Urine Nitrite NEG Urine Bilirubin NEG Urine Urobilinogen LESS THAN 2.0 MG/DL Urine Leukocyte Esterase SMALL Urine WBC 2 /hpf Urine Squamous Epithelial <1 /hpf Cells Microscopic Urinalysis Comment CULT NOT INDICATED White Blood Count 11.3 TH/MM3 Red Blood Count 5.21 MIL/MM3 Hemoglobin 14.5 GM/DL Hematocrit 43.8 % Mean Corpuscular Volume 84.1 FL Mean Corpuscular Hemoglobin 27.8 PG Mean Corpuscular Hemoglobin 33.1 % Concent Red Cell Distribution Width 15.8 % Platelet Count 157 TH/MM3 Mean Platelet Volume 7.9 FL Neutrophils (%) (Auto) 78.2 % Lymphocytes (%) (Auto) 12.9 % Monocytes (%) (Auto) 5.8 % Eosinophils (%) (Auto) 1.9 % Basophils (%) (Auto) 1.2 % Neutrophils # (Auto) 8.8 TH/MM3 Lymphocytes # (Auto) 1.5 TH/MM3 Monocytes # (Auto) 0.7 TH/MM3 Eosinophils # (Auto) 0.2 TH/MM3 Basophils # (Auto) 0.1 TH/MM3 CBC Comment DIFF FINAL Differential Comment Prothrombin Time 10.2 SEC Prothromb Time International 0.9 RATIO Ratio Activated Partial 29.5 SEC Thromboplast Time Sodium Level 138 MEQ/L Potassium Level 4.3 MEQ/L Chloride Level 104 MEQ/L Carbon Dioxide Level 28.1 MEQ/L Anion Gap 6 MEQ/L Blood Urea Nitrogen 20 MG/DL Creatinine 0.78 MG/DL Estimat Glomerular Filtration 101 ML/MIN Rate Random Glucose 84 MG/DL Calcium Level 8.7 MG/DL Total Bilirubin 0.4 MG/DL Aspartate Amino Transf 9 U/L (AST/SGOT) Alanine Aminotransferase 24 U/L (ALT/SGPT) Alkaline Phosphatase 72 U/L Total Protein 6.9 GM/DL Albumin 3.6 GM/DL Lipase 56 U/L [facility] Medical Decision Making Medical Screen Exam Complete: Yes Emergency Medical Condition: Yes Medical Record Reviewed: Yes Differential Diagnosis Colitis, diverticulitis, prostatitis, UTI, cystitis, musculoskeletal pain, cord compression unlikely Narrative Course Vital signs reviewed and are within normal limits. CBC shows WBC 11.3, hemoglobin 14.5, hematocrit 43.8, platelets 157, neutrophils 78.2%. CMP is unremarkable. Lipase is 56. UA is not suggestive of UTI. CT abdomen pelvis: CONCLUSION: Evidence of diverticulitis involving the distal descending colon. No evidence of abscess formation. The involved segment of colon is different than the prior episode of diverticulitis (previously was in proximal sigmoid colon). CT lumbar spine: CONCLUSION: 1. Probable disc protrusion central and right parasagittal to the neural foramen at L5-S1. 2. Mild disc disease with bulging at L3-4 and L4-5. Patient made aware of all findings. He is resting comfortably. No peritoneal signs on exam. No neuro deficits or signs of cord compression. He is stable for discharge home with oral antibiotics and outpatient follow-up with his primary care physician this week. He was informed on when to return to the emergency department. He verbalizes understanding and agreement with plan. Diagnosis Primary Impression: Diverticulitis Qualified Code: K57.32 - Diverticulitis of large intestine without perforation or abscess without bleeding Referrals: Primary Care Physician 3 days Additional Instructions: Follow-up with your primary care physician this week. Take antibody as prescribed. Return to the emergency department for worsening symptoms or any other concerns. Scripts Hydrocodone-Acetaminophen (Lortab)5-325 Mg Tab1 Tab PO Q6H PRN (PAIN) #15 TAB Ref 0 Prov:Leandro Haider MD 05/08/17 Metronidazole (Flagyl)500 Mg Ehm318 Mg PO BID 10 Days Ref 0 Prov:Leandro Haider MD 05/08/17 Amoxicillin-Clavulanate (Augmentin)875-125 Mg Tab1 Tab PO BID 10 Days Ref 0 Prov:Leandro Haider MD 05/08/17 Disposition: 01 DISCHARGE HOME Condition: Stable Leandro Haider MD May 08, 2017 18:11
[2017-05-08] MEDS ORDERED: SODIUM CHLORIDE 0.9% FLUSH 10 ML FLUSH IV FLUSH PRN (18:15)
[2017-05-08 18:32] VITALS: O2SAT 96
[2017-05-08 18:42] LABS: AUTOMATED NEUTROPHIL # 8.8 TH/MM3 (1.8-7.7); BASOPHIL # 0.1 TH/MM3 (0-0.2); BASOPHIL % 1.2 % (0.0-2.0); EOSINOPHIL # 0.2 TH/MM3 (0-0.4); EOSINOPHIL % 1.9 % (0.0-4.0); HEMATOCRIT 43.8 % (39.0-51.0); HEMO FLAGS DIFF FINAL; LYMPH % 12.9 % (9.0-44.0); LYMPHOCYTE # 1.5 TH/MM3 (1.0-4.8); MEAN CELL VOLUME 84.1 FL (80.0-100.0); MEAN CORPUSCULAR HEMOGLOBIN 27.8 PG (27.0-34.0); MEAN CORPUSCULAR HGB CONC 33.1 % (32.0-36.0); MONO % 5.8 % (0.0-8.0); NEUT % 78.2 % (16.0-70.0); PLATELET COUNT 157 TH/MM3 (150-450); RED BLOOD COUNT 5.21 MIL/MM3 (4.50-5.90); RED CELL DISTRIBUTION WIDTH 15.8 % (11.6-17.2); WHITE BLOOD COUNT 11.3 TH/MM3 (4.0-11.0)
[2017-05-08 18:49] VITALS: BP 138/80; PULSE 56; RESP 16; O2SAT 97
[2017-05-08 18:55] LABS: APTT (PATIENT) 29.5 SEC (24.3-30.1); INTERNATIONAL NORMALIZED RATIO 0.9 RATIO; PROTHROMBIN TIME - PATIENT 10.2 SEC (9.8-11.6)
[2017-05-08 18:56] LABS: BLOOD, URINE NEG (NEG); COMMENT (UR) CULT NOT INDICATED; CULTURE IF INDICATED CULT NOT INDICATED; GLUCOSE,URINE NEG (NEG); KETONE, URINE NEG (NEG); NITRITE,URINE NEG (NEG); SQUAMOUS EPITHELIAL CELL URINE <1 /hpf (0-5); URINE COLOR YELLOW (YELLW/STRAW)
[2017-05-08 19:05] LABS: ANION GAP 6 MEQ/L (5-15); AST (GOT) 9 U/L (15-37); BICARBONATE 28.1 MEQ/L (21.0-32.0); BLOOD UREA NITROGEN 20 MG/DL (7-18); CHLORIDE 104 MEQ/L (98-107); GLOMERULAR FILTRATION RATE 101 ML/MIN (>89); POTASSIUM 4.3 MEQ/L (3.5-5.1); SODIUM (NA) 138 MEQ/L (136-145)
[2017-05-08 19:06] LABS: ALT (GPT) 24 U/L (12-78)
[2017-05-08 19:08] LABS: ALKALINE PHOSPHATASE 72 U/L (45-117); TOTAL BILIRUBIN ADULT 0.4 MG/DL (0.2-1.0)
[2017-05-08] MEDS ORDERED: IOHEXOL 350 MG/ML 10 ML VIAL (for RAD DIAG) IV ONE (19:41)
--- NOTE | 2017-05-08 19:42 | RADRPT ---
EXAM DATE/TIME: 05/08/2017 19:15 [facility] COMPARISON: CT ABDOMEN & PELVIS W CONTRAST, October 20, 2016, 9:17. INDICATIONS : Abdominal pain. IV CONTRAST: 100 cc Omnipaque 350 (iohexol) IV ORAL CONTRAST: No oral contrast ingested. RADIATION DOSE: 12.29 CTDIvol (mGy) MEDICAL HISTORY : None SURGICAL HISTORY : Bilateral hip surgery ENCOUNTER: Initial ACUITY: 1 day PAIN SCALE: 7/10 LOCATION: abdomen TECHNIQUE: Volumetric scanning of the abdomen and pelvis was performed. Using automated exposure control and ad justment of the mA and/or kV according to patient size, radiation dose was kept as low as reasonably achievable to obtain optimal diagnostic quality images. DICOM format image data is available electro nically for review and comparison. FINDINGS: LOWER LUNGS: The visualized lower lungs are clear. LIVER: Homogeneous density without lesion. There is no dilation of the biliary tree. No calcified gallston es. SPLEEN: Normal size without lesion. PANCREAS: Within normal limits. KIDNEYS: Normal in size and shape. There is no mass, stone or hydronephrosis. Bilateral renal cysts, stable from prior. ADRENAL GLANDS: Within normal limits. VASCULAR: There is no aortic aneurysm. BOWEL/MESENTERY: No dilated loops of small or large bowel. There are multiple diverticula in the sigmoid colon withou t radiographic evidence of diverticulitis. There is some induration of the fat about the distal desc ending colon, best seen on image #49. This area of induration extends 4.6 cm in superior/inferior ex tent. No evidence of free fluid. ABDOMINAL WALL: Within normal limits. RETROPERITONEUM: There is no lymphadenopathy. BLADDER: No wall thickening or mass. REPRODUCTIVE: Within normal limits. INGUINAL: There is no lymphadenopathy or hernia. MUSCULOSKELETAL: Bilateral total hip arthroplasties. CONCLUSION: Evidence of diverticulitis involving the distal descending colon. No evidence of abscess formation. The involved segment of colon is different than the prior episode of diverticulitis (previously was in proximal sigmoid colon). Nba Hernandez MD on May 08, 2017 at 19:37 Board Certified Radiologist. This report was verified electronically.
[2017-05-08] MEDS ORDERED: metroNIDAZOLE 500 MG TAB PO ONE (20:00)
[2017-05-08] MEDS ORDERED: CIPROFLOXACIN 500 MG TAB PO ONE (20:00)
--- NOTE | 2017-05-08 20:02 | RADRPT ---
EXAM DATE/TIME: 05/08/2017 19:15 [facility] COMPARISON: CT ABDOMEN & PELVIS W CONTRAST, May 08, 2017, 19:15. INDICATIONS : Back pain. RADIATION DOSE: CTDIvol (mGy) ; Reconstructed from previous dataset, no dose MEDICAL HISTORY : None SURGICAL HISTORY : Bilateral hip surgery ENCOUNTER: Initial ACUITY: 1 day PAIN SCALE: 7/10 LOCATION: lower back TECHNIQUE: Volumetric scanning of the lumbar spine was performed. Multiplanar reconstructions in the sagittal, coronal and oblique axial planes were performed. Using automated exposure control and adjustment of the mA and/or kV according to patient size, radiation dose was kept as low as reasonably achievable t o obtain optimal diagnostic quality images. DICOM format image data is available electronically for review and comparison. FINDINGS: VERTEBRAE: Normal vertebral body height. Anterior non-bridging paravertebral ossification T. 11 through L1. ALIGNMENT: No evidence of subluxation. T12-L1: The thecal sac has a normal diameter. No evidence of disc bulge or protrusion. The neural foramina are patent bilaterally. L1-L2: The thecal sac has a normal diameter. No evidence of disc bulge or protrusion. The neural foramina are patent bilaterally. L2-L3: The thecal sac has a normal diameter. No evidence of disc bulge or protrusion. The neural foramina are patent bilaterally. L3-L4: Mild broad-based bulging of the disc. The neural foramen remain patent. L4-L5: Mild broad-based bulging of the disc without significant deformity of the thecal sac. The neural for miguel ángel are patent. L5-S1: Moderate-sized central disc bulge or protrusion, broad-based in configuration, measuring 8 mm in AP d imension. There is some extension into the neural foramen on the right with probable impression on t he nerve root within the neural foramen. CONCLUSION: 1. Probable disc protrusion central and right parasagittal to the neural foramen at L5-S1. 2. Mild disc disease with bulging at L3-4 and L4-5. Nba Hernandez MD on May 08, 2017 at 19:57 Board Certified Radiologist. This report was verified electronically.
[2017-05-08] MEDS ORDERED: HYDR-3533 PO (20:12)
[2017-05-08] MEDS ORDERED: AUGM875T3 PO (20:12)
[2017-05-08] MEDS ORDERED: METR-1 PO (20:12)
[2017-05-08] MEDS ORDERED: AMOXICILLIN/CLAVULANATE K 875 MG TAB PO ONE (20:15)
== END 2017-05-08 20:32 | disposition home or self-care (01) ==
LOC: NEPD 16:25
DX: K57.32 Diverticulitis of large intestine without perforation or abscess without bleeding (principal); E78.00 Pure hypercholesterolemia, unspecified; M19.90 Unspecified osteoarthritis, unspecified site
CPT/HCPCS: 72131; 74177; 80053; 81001; 83690; 85025; 85610; 85730; 99284; Q9967